=== PATIENT | male | born 1980 | race Two or more races ===

== ENCOUNTER 2024-01-14 10:20 | Emergency (ER) | payer SELFPAY ==
[~2024-01-14] VITALS: Ht 180.3 cm; Wt 111.2 kg
[2024-01-14 10:57] VITALS: BP 162/104; PULSE 119; RESP 18; O2SAT 96
[2024-01-14 12:15] LABS: Basophils # (auto) 0 10 ^3/uL (0-0.2); Basophils % (auto) 0.2 % (0.0-2.0); Eosinophils # (auto) 0 10 ^3/uL (0-0.8); Hematocrit 37.3 % (41.0-53.0); Lymphocytes # (auto) 0.4 10 ^3/uL (0.4-5.4); Lymphocytes % (auto) 6.9 % (10.0-50.0); Mean Corpuscular Hemoglobin 30.5 pg (28.0-32.0); Mean Corpuscular Hgb Conc. 34.7 g/dL (32.0-36.0); Monocytes # (auto) 0.3 10 ^3/uL (0-1.3); Monocytes % (auto) 5.2 % (0.0-12.0); Neutrophils # (auto) 4.7 10 ^3/uL (1.6-8.6); Neutrophils % (auto) 87.7 % (37.0-80.0); Nucleated Red Blood Cells % 0.1 %; Platelet Count (auto) 42 10^3/uL (140-450); Red Blood Cells 4.24 10^6/uL (4.5-5.90); Red Cell Distribution Width 14.1 % (11.8-14.3); White Blood Cell 5.3 10^3/uL (4.4-10.8)
[2024-01-14 12:37] LABS: Alanine Aminotransferase 81 U/L (7-40); Albumin 4.5 g/dL (3.2-4.8); Alkaline Phosphatase 92 U/L (46-116); Anion Gap 11 (5-15); BUN/Creatinine Ratio 19.2 (10.0-20.0); Blood Urea Nitrogen 15 mg/dL (9-23); Calcium 9.8 mg/dL (8.7-10.4); Carbon Dioxide 24 mmol/L (20-30); Chloride 103 mmol/L (98-107); Glucose 182 mg/dL (74-106); Potassium 3.8 mmol/L (3.5-5.1); Sodium 138 mmol/L (136-145)
[2024-01-14 12:38] LABS: Aspartate Aminotransferase 152 U/L (13-40); Bilirubin, Total 2.6 mg/dL (0.2-1.0); Total Protein 8.6 g/dL (5.7-8.2)
[2024-01-14] MEDS: SODIUM CHLORIDE 0.9% 2,000 ML IV ONE (18:29)
== END 2024-01-14 15:26 | disposition admitted as inpatient to this hospital (09) ==
LOC: ER 10:20
DX: G72.3 Periodic paralysis (principal)
CPT/HCPCS: 36415; 70450; 80053; 84484; 85025; 85379; 93005